=== PATIENT | female | born 1930 | race Caucasian/White ===

== ENCOUNTER → 2017-03-11 | Outpatient (REF) | payer MEDICARE ==
[~2017-03-11] MED LIST: ACET-654 PO; EXCETAB80 PO; FISH100049 PO; LISI10TA2 PO; LISI10TA4 PO; LUTE20CA PO; MELO15TA4 PO; VITA100066 PO
[2017-03-11 11:51] LABS: ALBUMIN 3.3 GM/DL (3.2-5.2); ALBUMIN/GLOBULIN RATIO 0.97 (1.00-1.93); ALKALINE PHOSPHATASE 47 U/L (45-117); ALT/SGPT 18 U/L (12-78); ANION GAP 7 MEQ/L (8-16); AST/SGOT 13 U/L (15-37); BILIRUBIN,TOTAL 0.3 MG/DL (0.2-1.0); BLOOD UREA NITROGEN 17 MG/DL (7-18); CALCIUM LEVEL 9.2 MG/DL (8.8-10.2); CARBON DIOXIDE LEVEL 30 MEQ/L (21-32); CHLORIDE LEVEL 103 MEQ/L (98-107); CREATININE FOR GFR 0.86 MG/DL (0.55-1.02); GLOMERULAR FILTRATION RATE > 60.0 (>32); GLUCOSE, FASTING 86 MG/DL (83-110); MAGNESIUM LEVEL 1.9 MG/DL (1.8-2.4); POTASSIUM SERUM 4.2 MEQ/L (3.5-5.1); SODIUM LEVEL 140 MEQ/L (136-145); TOTAL PROTEIN 6.7 GM/DL (6.4-8.2)
== END ==
LOC: M SFHCPLAZ 09:20
PROVIDERS: ATTEND Internal Medicine
DX: I10 Essential (primary) hypertension (principal)

== ENCOUNTER → 2017-09-04 | Outpatient (REF) | payer MEDICARE ==
[~2017-09-04] MED LIST changes: -ACET-654 PO; +ACET1TAB17 PO
[2017-09-04 12:11] LABS: MEAN CORPUSCULAR HEMOGLOBIN 31.8 pg (27.0-33.0); MEAN CORPUSCULAR HGB CONC 31.5 g/dl (32.0-36.5); MEAN CORPUSCULAR VOLUME 100.9 fl (80.0-96.0); PLATELET COUNT, AUTOMATED 256 10^3/uL (150-450); RED CELL DISTRIBUTION WIDTH 12.5 % (11.5-14.5); WHITE BLOOD COUNT 7.1 10^3/uL (4.0-10.0)
[2017-09-04 12:29] LABS: ALBUMIN 3.5 GM/DL (3.2-5.2); ALBUMIN/GLOBULIN RATIO 1.03 (1.00-1.93); ALKALINE PHOSPHATASE 45 U/L (45-117); ALT/SGPT 17 U/L (12-78); ANION GAP 6 MEQ/L (8-16); AST/SGOT 13 U/L (7-37); BILIRUBIN,TOTAL 0.4 MG/DL (0.2-1.0); BLOOD UREA NITROGEN 24 MG/DL (7-18); CALCIUM LEVEL 9.9 MG/DL (8.8-10.2); CARBON DIOXIDE LEVEL 31 MEQ/L (21-32); CHLORIDE LEVEL 104 MEQ/L (98-107); CHOLESTEROL LEVEL 194 MG/DL (<200); GLOMERULAR FILTRATION RATE > 60.0 (>32); GLUCOSE, FASTING 87 MG/DL (83-110); POTASSIUM SERUM 4.4 MEQ/L (3.5-5.1); SODIUM LEVEL 141 MEQ/L (136-145); TOTAL PROTEIN 6.9 GM/DL (6.4-8.2); TRIGLYCERIDES LEVEL 136 MG/DL (<150)
== END ==
LOC: M SFHCPLAZ 08:41
PROVIDERS: ATTEND Internal Medicine
DX: K58.0 Irritable bowel syndrome with diarrhea (principal); I10 Essential (primary) hypertension

== ENCOUNTER → 2018-01-12 | Outpatient (CLI) | payer MEDICARE | LOC: M WHC 12:48 | DX: Z12.31 Encounter for screening mammogram for malignant neoplasm of breast (principal) | CPT/HCPCS: 77067 ==

== ENCOUNTER → 2018-03-19 | Outpatient (REF) | payer MEDICARE ==
[2018-03-19 13:00] LABS: ALBUMIN 3.5 GM/DL (3.2-5.2); ALBUMIN/GLOBULIN RATIO 0.97 (1.00-1.93); ALKALINE PHOSPHATASE 51 U/L (45-117); ALT/SGPT 24 U/L (12-78); ANION GAP 7 MEQ/L (8-16); AST/SGOT 18 U/L (7-37); BILIRUBIN,TOTAL 0.5 MG/DL (0.2-1.0); BLOOD UREA NITROGEN 22 MG/DL (7-18); CALCIUM LEVEL 9.6 MG/DL (8.8-10.2); CARBON DIOXIDE LEVEL 29 MEQ/L (21-32); CHLORIDE LEVEL 103 MEQ/L (98-107); CREATININE FOR GFR 1.15 MG/DL (0.55-1.30); GLOMERULAR FILTRATION RATE 47.7 (>32); GLUCOSE, FASTING 84 MG/DL (70-100); POTASSIUM SERUM 4.1 MEQ/L (3.5-5.1); SODIUM LEVEL 139 MEQ/L (136-145); TOTAL PROTEIN 7.1 GM/DL (6.4-8.2)
== END ==
LOC: M SFHCPLAZ 09:26
DX: I10 Essential (primary) hypertension (principal)
CPT/HCPCS: 83735

== ENCOUNTER → 2018-09-18 | Outpatient (REF) | payer MEDICARE ==
[2018-09-18 10:44] LABS: HEMATOCRIT 33.6 % (36.0-47.0); HEMOGLOBIN 10.7 g/dl (12.0-15.5); MEAN CORPUSCULAR HEMOGLOBIN 31.9 pg (27.0-33.0); MEAN CORPUSCULAR HGB CONC 31.8 g/dl (32.0-36.5); MEAN CORPUSCULAR VOLUME 100.3 fl (80.0-96.0); PLATELET COUNT, AUTOMATED 293 10^3/uL (150-450); RED BLOOD COUNT 3.35 10^6/uL (4.00-5.40); WHITE BLOOD COUNT 6.6 10^3/uL (4.0-10.0)
[2018-09-18 10:49] LABS: ALBUMIN 3.6 GM/DL (3.2-5.2); ALKALINE PHOSPHATASE 50 U/L (45-117); ALT/SGPT 16 U/L (12-78); ANION GAP 6 MEQ/L (8-16); AST/SGOT 15 U/L (7-37); BILIRUBIN,TOTAL 0.6 MG/DL (0.2-1.0); BLOOD UREA NITROGEN 22 MG/DL (7-18); CALCIUM LEVEL 9.5 MG/DL (8.8-10.2); CARBON DIOXIDE LEVEL 31 MEQ/L (21-32); CHLORIDE LEVEL 104 MEQ/L (98-107); CHOLESTEROL LEVEL 175 MG/DL (<200); CHOLESTEROL RISK RATIO 2.333 (<5); GLUCOSE, FASTING 92 MG/DL (70-100); HDL CHOLESTEROL 75 MG/DL (>40); LDL CHOLESTEROL 72 MG/DL (<100); MAGNESIUM LEVEL 1.8 MG/DL (1.8-2.4); NON-HDL-C 100 MG/DL; SODIUM LEVEL 141 MEQ/L (136-145); TOTAL PROTEIN 7.2 GM/DL (6.4-8.2); TRIGLYCERIDES LEVEL 138 MG/DL (<150)
== END ==
LOC: M SFHCPLAZ 08:45
DX: Z86.010 Personal history of colon polyps (principal); I10 Essential (primary) hypertension; M81.0 Age-related osteoporosis without current pathological fracture
CPT/HCPCS: 83735

== ENCOUNTER 2019-02-08 09:49 | Day surgery (SDC) | payer MEDICARE ==
[~2019-02-08] VITALS: Ht 167.6 cm; Wt 54.0 kg
[~2019-02-08 09:49] MED LIST changes: -ACET1TAB17 PO; +ACET1TAB55 PO; +BENE1POW5 PO; +BIMA01SOL OD; +BRIM1OPD OU; +EXCETAB33 PO; +LIDOCAINE 2% INJ 100 MG/5 ML SDV (FOR ANES.) As Ordered ONE; +LISI20TA PO; +LOPE2TAB11 PO; +LUTE20CA7 PO; +MELA3TAB12 PO; +MELO15TA28 PO; -MELO15TA4 PO; +NS 1,000 ML IV ONE; +OMEP20CA3 PO; +PROPOFOL 200 MG/20 ML VIAL As Ordered ONE; +VITAD1000T PO
[2019-02-08] MEDS ORDERED: TUMERIC PO (10:39)
--- NOTE | 2019-02-08 11:06 | ROOR ---
Patient Name: Sarah Diaz Procedure Date: 02/08/2019 10:46 AM Date of : 1930 Age: 88 Room: [facility], [facility]IN [facility] Gender: Female Note Status: Finalized Procedure: Upper GI endoscopy Balloon Dilatation Indications: Dysphagia Providers: Chad Samuel MD Referring MD: Ten Dean MD Requesting Provider: Medicines: Monitored Anesthesia Care Complications: No immediate complications. Procedure: Pre-Anesthesia Assessment: - The heart rate, respiratory rate, oxygen saturations, blood pressure, adequacy of pulmonary ventilation, and response to care were monitored throughout the procedure. The Endoscope was introduced through the mouth, and advanced to the second part of duodenum. The upper GI endoscopy was accomplished without difficulty. The patient tolerated the procedure well. Findings: The Z-line was regular and was found 38 cm from the incisors. One benign-appearing, intrinsic severe stenosis was found 20 cm from the incisors. The stenosis was traversed after dilation. A TTS dilator was passed through the scope. Dilation with an 8-9-10 mm balloon and a 10-11-12 mm balloon dilator was performed. The dilation site was examined and showed moderate mucosal disruption. No other significant abnormalities were identified in a careful examination of the stomach. The exam of the duodenum was otherwise normal. Impression: - Z-line regular, 38 cm from the incisors. - Benign-appearing esophageal stenosis. Dilated. - No specimens collected. - The examination was otherwise normal. Recommendation: - Patient has a contact number available for emergencies. The signs and symptoms of potential delayed complications were discussed with the patient. Return to normal activities tomorrow. Written discharge instructions were provided to the patient. - Soft diet. - Discharge patient to home. - Continue present medications. - Follow an antireflux regimen. - Return to GI clinic in 6 weeks. - Return to referring physician. - The findings and recommendations were discussed with the patient's family. Chad Samuel MD Chad Samuel MD 02/08/2019 11:06:24 AM Electronically signed by Chad Samuel MD Number of Addenda: 0 Note Initiated On: 02/08/2019 10:46 AM Estimated Blood Loss: Estimated blood loss: none.
[2019-02-08 11:30] VITALS: BP 103/58
== END 2019-02-08 11:39 | disposition home or self-care (01) ==
LOC: M OPP 09:49
PROVIDERS: ATTEND Internal Medicine Gastroenterology
DX: R13.10 Dysphagia, unspecified (principal); K22.2 Esophageal obstruction; Z79.899 Other long term (current) drug therapy; Z88.0 Allergy status to penicillin; Z88.8 Allergy status to other drugs, medicaments and biological substances

== ENCOUNTER → 2019-03-30 | Outpatient (REF) | payer MEDICARE ==
[~2019-03-30] MED LIST changes: -LIDOCAINE 2% INJ 100 MG/5 ML SDV (FOR ANES.) As Ordered ONE; -NS 1,000 ML IV ONE; -PROPOFOL 200 MG/20 ML VIAL As Ordered ONE; +TUMERIC PO
[2019-03-30 12:09] LABS: BASO % 0.4 % (0.0-1.0); EOS # 0.2 10^3/uL (0.0-0.50); EOS % 2.5 % (0.0-3.0); HEMATOCRIT 33.2 % (36.0-47.0); HEMOGLOBIN 10.5 g/dl (12.0-15.5); LYMPH # 1.5 10^3/uL (1.5-4.5); LYMPH % 21.9 % (24.0-44.0); MEAN CORPUSCULAR HEMOGLOBIN 31.4 pg (27.0-33.0); MEAN CORPUSCULAR HGB CONC 31.6 g/dl (32.0-36.5); MEAN CORPUSCULAR VOLUME 99.4 fl (80.0-96.0); MONO # 0.5 10^3/uL (0.0-0.8); MONO % 6.9 % (0.0-5.0); NEUTROPHILS # 4.5 10^3/uL (1.8-7.7); NEUTROPHILS % 67.9 % (36.0-66.0); PLATELET COUNT, AUTOMATED 268 10^3/uL (150-450); RED BLOOD COUNT 3.34 10^6/uL (4.00-5.40); WHITE BLOOD COUNT 6.7 10^3/uL (4.0-10.0)
[2019-03-30 13:40] LABS: ALBUMIN 3.4 GM/DL (3.2-5.2); BILIRUBIN,TOTAL 0.5 MG/DL (0.2-1.0); CALCIUM LEVEL 9.6 MG/DL (8.8-10.2); CREATININE FOR GFR 1.02 MG/DL (0.55-1.30); FOLATE 10.3 NG/ML; GLOMERULAR FILTRATION RATE 54.7 (>32); MAGNESIUM LEVEL 1.9 MG/DL (1.8-2.4); PERCENT SATURATION 32.4 % (13.2-45.0); POTASSIUM SERUM 4.1 MEQ/L (3.5-5.1); THYROID STIMULATING HORMONE 2.21 uIU/ML (0.358-3.740); TOTAL PROTEIN 7.1 GM/DL (6.4-8.2)
== END ==
LOC: M SFHCPLAZ 10:51
PROVIDERS: ATTEND Internal Medicine
DX: D64.9 Anemia, unspecified (principal); I10 Essential (primary) hypertension; R63.4 Abnormal weight loss

== ENCOUNTER → 2019-07-20 | Outpatient (CLI) | payer MEDICARE ==
[~2019-07-20] MED LIST changes: +CHOL100029 PO; +LISI10TA15 PO; -LISI10TA2 PO; -LISI20TA PO; +LISI20TA19 PO; -LOPE2TAB11 PO; +LOPE2TAB12 PO; -OMEP20CA3 PO; +OMEP20CA4 PO; -VITAD1000T PO
--- NOTE | 2019-07-20 09:31 | REP ---
ULTRASOUND ABDOMEN: Real-time sonographic evaluation of the abdomen performed. Gallstones are seen in the gallbladder. There is no gallbladder wall thickening. No free fluid is seen. There is no intrahepatic or extrahepatic biliary dilatation, common bile duct measuring 5 mm. The liver demonstrates no gross mass. The pancreas is not well seen due to bowel gas and body habitus. No gross abnormality is seen in the region of the pancreas. Spleen is normal in size with a length of 9.5 cm, and no intrinsic abnormality. Kidneys are mildly atrophic, right kidney measuring 8.5 x 3.8 x 3.3 cm and left kidney 9.3 x 2.8 x 3.2 cm. There is no hydronephrosis bilaterally. No renal mass is seen. Abdominal aorta is normal in caliber with no aneurysm, proximally measuring 2.5 cm and distally 1.9 cm in AP dimension. IMPRESSION: Gallstones in the gallbladder without gallbladder wall thickening, free fluid or biliary dilatation. Somewhat atrophic kidneys with no hydronephrosis. No other definite abnormalities although this study is limited due to patient body habitus and bowel gas. Electronically Signed by Zion Hayden MD 07/21/2019 04:04 P
== END ==
LOC: M RAD 06:45
PROVIDERS: ATTEND Internal Medicine
DX: R63.4 Abnormal weight loss (principal); K80.20 Calculus of gallbladder without cholecystitis without obstruction; N26.1 Atrophy of kidney (terminal)

== ENCOUNTER → 2019-09-14 | Outpatient (REF) | payer MEDICARE ==
[2019-09-14 14:59] LABS: ALBUMIN 3.3 GM/DL (3.2-5.2); BILIRUBIN,TOTAL 0.4 MG/DL (0.2-1.0); CALCIUM LEVEL 9.4 MG/DL (8.8-10.2); CREATININE FOR GFR 0.95 MG/DL (0.55-1.30); GLOMERULAR FILTRATION RATE 59.2 (>32); MAGNESIUM LEVEL 1.8 MG/DL (1.8-2.4); POTASSIUM SERUM 3.9 MEQ/L (3.5-5.1); TOTAL PROTEIN 7.2 GM/DL (6.4-8.2)
[2019-09-14 15:03] LABS: BASO % 0.5 % (0.0-1.0); EOS # 0.1 10^3/uL (0.0-0.5); EOS % 0.6 % (0.0-3.0); HEMATOCRIT 33.1 % (36.0-47.0); HEMOGLOBIN 10.1 g/dl (12.0-15.5); LYMPH # 1.4 10^3/uL (1.5-5.0); LYMPH % 16.2 % (24.0-44.0); MEAN CORPUSCULAR HEMOGLOBIN 31.6 pg (27.0-33.0); MEAN CORPUSCULAR HGB CONC 30.5 g/dl (32.0-36.5); MEAN CORPUSCULAR VOLUME 103.4 fl (80.0-96.0); MONO # 0.7 10^3/uL (0.0-0.8); NEUTROPHILS # 6.6 10^3/uL (1.5-8.5); NEUTROPHILS % 74.5 % (36.0-66.0); PLATELET COUNT, AUTOMATED 330 10^3/uL (150-450); WHITE BLOOD COUNT 8.9 10^3/uL (4.0-10.0)
== END ==
LOC: M SFHCPLAZ 10:48
PROVIDERS: ATTEND Internal Medicine
DX: D64.9 Anemia, unspecified (principal); I10 Essential (primary) hypertension

== ENCOUNTER → 2019-12-21 | Outpatient (REF) | payer MEDICARE ==
[~2019-12-21] MED LIST changes: +OMEP1CAP73 PO; -OMEP20CA4 PO
[2019-12-21 14:03] LABS: BASO # 0.1 10^3/uL (0.0-0.2); BASO % 0.7 % (0.0-1.0); EOS % 0.1 % (0.0-3.0); HEMATOCRIT 33.4 % (36.0-47.0); HEMOGLOBIN 10.6 g/dl (12.0-15.5); LYMPH # 1.7 10^3/uL (1.5-5.0); LYMPH % 22.9 % (24.0-44.0); MEAN CORPUSCULAR HEMOGLOBIN 31.7 pg (27.0-33.0); MEAN CORPUSCULAR HGB CONC 31.7 g/dl (32.0-36.5); MONO # 0.6 10^3/uL (0.0-0.8); MONO % 8.5 % (0.0-5.0); NEUTROPHILS # 5.1 10^3/uL (1.5-8.5); NEUTROPHILS % 67.5 % (36.0-66.0); PLATELET COUNT, AUTOMATED 307 10^3/uL (150-450); RED BLOOD COUNT 3.34 10^6/uL (4.00-5.40); WHITE BLOOD COUNT 7.5 10^3/uL (4.0-10.0)
[2019-12-21 15:17] LABS: ALBUMIN 3.6 GM/DL (3.2-5.2); ALT/SGPT 18 U/L (12-78); BILIRUBIN,TOTAL 0.5 MG/DL (0.2-1.0); BLOOD UREA NITROGEN 32 MG/DL (7-18); CALCIUM LEVEL 9.9 MG/DL (8.8-10.2); CARBON DIOXIDE LEVEL 31 MEQ/L (21-32); CHLORIDE LEVEL 105 MEQ/L (98-107); CREATININE FOR GFR 0.88 MG/DL (0.55-1.30); GLOMERULAR FILTRATION RATE > 60.0 (>32); GLUCOSE, FASTING 102 MG/DL (70-100); MAGNESIUM LEVEL 1.9 MG/DL (1.8-2.4); POTASSIUM SERUM 4.5 MEQ/L (3.5-5.1); SODIUM LEVEL 139 MEQ/L (136-145); TOTAL PROTEIN 7.4 GM/DL (6.4-8.2); VITAMIN B12 LEVEL 1254 PG/ML
== END ==
LOC: M SFHCPLAZ 10:33
PROVIDERS: ATTEND Internal Medicine
DX: D64.9 Anemia, unspecified (principal); I10 Essential (primary) hypertension

== ENCOUNTER → 2020-06-30 | Outpatient (CLI) | payer MEDICARE ==
[~2020-06-30] MED LIST changes: -LISI20TA19 PO; +LISI20TA35 PO
[2020-06-30 13:03] LABS: BASO # 0.1 10^3/uL (0.0-0.2); BASO % 0.7 % (0.0-1.0); EOS # 0.1 10^3/uL (0.0-0.5); EOS % 0.7 % (0.0-3.0); HEMATOCRIT 34.3 % (36.0-47.0); HEMOGLOBIN 10.8 g/dl (12.0-15.5); LYMPH # 1.6 10^3/uL (1.5-5.0); LYMPH % 22.9 % (24.0-44.0); MEAN CORPUSCULAR HEMOGLOBIN 32.1 pg (27.0-33.0); MEAN CORPUSCULAR HGB CONC 31.5 g/dl (32.0-36.5); MEAN CORPUSCULAR VOLUME 102.1 fl (80.0-96.0); MONO # 0.5 10^3/uL (0.0-0.8); MONO % 7.4 % (0.0-5.0); NEUTROPHILS # 4.8 10^3/uL (1.5-8.5); NEUTROPHILS % 68.2 % (36.0-66.0); PLATELET COUNT, AUTOMATED 275 10^3/uL (150-450); RED BLOOD COUNT 3.36 10^6/uL (4.00-5.40)
[2020-06-30 13:09] LABS: ALBUMIN 3.5 GM/DL (3.2-5.2); BILIRUBIN,TOTAL 0.6 MG/DL (0.2-1.0); CREATININE FOR GFR 1.11 MG/DL (0.55-1.30); GLOMERULAR FILTRATION RATE 49.5 (>32); POTASSIUM SERUM 4.3 MEQ/L (3.5-5.1); TOTAL PROTEIN 7.4 GM/DL (6.4-8.2)
== END ==
LOC: M PLALAB 09:15
PROVIDERS: ATTEND Internal Medicine
DX: Z00.00 Encounter for general adult medical examination without abnormal findings (principal); D64.9 Anemia, unspecified; I10 Essential (primary) hypertension

== ENCOUNTER → 2021-01-01 | Outpatient (REF) | payer MEDICARE ==
[~2021-01-01] MED LIST changes: +LISI10TA22 PO; -LISI10TA4 PO
[2021-01-01 13:07] LABS: BASO # 0.1 10^3/uL (0.0-0.2); BASO % 0.9 % (0.0-1.0); EOS # 0.3 10^3/uL (0.0-0.5); EOS % 3.6 % (0.0-3.0); HEMATOCRIT 33.7 % (36.0-47.0); HEMOGLOBIN 10.5 g/dl (12.0-15.5); LYMPH # 1.9 10^3/uL (1.5-5.0); LYMPH % 25.1 % (24.0-44.0); MEAN CORPUSCULAR HEMOGLOBIN 32.3 pg (27.0-33.0); MEAN CORPUSCULAR HGB CONC 31.2 g/dl (32.0-36.5); MEAN CORPUSCULAR VOLUME 103.7 fl (80.0-96.0); MONO # 0.8 10^3/uL (0.0-0.8); MONO % 10.1 % (2.0-8.0); NEUTROPHILS # 4.6 10^3/uL (1.5-8.5); NEUTROPHILS % 60.2 % (36.0-66.0); PLATELET COUNT, AUTOMATED 292 10^3/uL (150-450); RED BLOOD COUNT 3.25 10^6/uL (4.00-5.40); WHITE BLOOD COUNT 7.6 10^3/uL (4.0-10.0)
[2021-01-01 13:45] LABS: ALBUMIN 3.6 GM/DL (3.2-5.2); ALT/SGPT 18 U/L (12-78); BILIRUBIN,TOTAL 0.4 MG/DL (0.2-1.0); BLOOD UREA NITROGEN 24 MG/DL (7-18); CALCIUM LEVEL 10.2 MG/DL (8.8-10.2); CARBON DIOXIDE LEVEL 33 MEQ/L (21-32); CHLORIDE LEVEL 105 MEQ/L (98-107); CHOLESTEROL LEVEL 174 MG/DL (<200); CHOLESTEROL RISK RATIO 2.121 (<5); CREATININE FOR GFR 0.98 MG/DL (0.55-1.30); GLUCOSE, FASTING 87 MG/DL (70-100); HDL CHOLESTEROL 82 MG/DL (>40); LDL CHOLESTEROL 56 MG/DL (<100); MAGNESIUM LEVEL 1.8 MG/DL (1.8-2.4); NON-HDL-C 92 MG/DL; POTASSIUM SERUM 4.8 MEQ/L (3.5-5.1); SODIUM LEVEL 139 MEQ/L (136-145); TRIGLYCERIDES LEVEL 181 MG/DL (<150)
== END ==
LOC: M PLALAB 09:12
PROVIDERS: ATTEND Internal Medicine
DX: D64.9 Anemia, unspecified (principal); I10 Essential (primary) hypertension; Z11.59 Encounter for screening for other viral diseases
CPT/HCPCS: 36415; 80053; 80061; 83735; 85025; G0472

== ENCOUNTER → 2021-07-10 | Outpatient (CLI) | payer MEDICARE ==
[2021-07-10 10:30] LABS: BASO # 0.1 10^3/uL (0.0-0.2); EOS # 0.3 10^3/uL (0.0-0.5); EOS % 4.8 % (0.0-3.0); HEMATOCRIT 33.4 % (36.0-47.0); HEMOGLOBIN 10.8 g/dl (12.0-15.5); LYMPH # 1.9 10^3/uL (1.5-5.0); LYMPH % 25.9 % (24.0-44.0); MEAN CORPUSCULAR HEMOGLOBIN 32.2 pg (27.0-33.0); MEAN CORPUSCULAR HGB CONC 32.3 g/dl (32.0-36.5); MEAN CORPUSCULAR VOLUME 99.7 fl (80.0-96.0); MONO # 0.7 10^3/uL (0.0-0.8); MONO % 9.1 % (2.0-8.0); NEUTROPHILS # 4.2 10^3/uL (1.5-8.5); NEUTROPHILS % 58.6 % (36.0-66.0); PLATELET COUNT, AUTOMATED 283 10^3/uL (150-450); RED BLOOD COUNT 3.35 10^6/uL (4.00-5.40); WHITE BLOOD COUNT 7.1 10^3/uL (4.0-10.0)
[2021-07-10 10:36] LABS: ALBUMIN 3.4 GM/DL (3.2-5.2); BILIRUBIN,TOTAL 0.5 MG/DL (0.2-1.0); CALCIUM LEVEL 9.7 MG/DL (8.8-10.2); CREATININE FOR GFR 1.14 MG/DL (0.55-1.30); GLOMERULAR FILTRATION RATE 47.9 (>32); POTASSIUM SERUM 3.9 MEQ/L (3.5-5.1)
== END ==
LOC: M PLALAB 08:28
PROVIDERS: ATTEND Internal Medicine
DX: I10 Essential (primary) hypertension (principal); D64.9 Anemia, unspecified

== ENCOUNTER → 2022-02-04 | Outpatient (CLI) | payer MEDICARE ==
[~2022-02-04] MED LIST changes: -LISI10TA15 PO; +LISI10TA24 PO
[2022-02-04 10:38] LABS: BASO % 0.7 % (0.0-1.0); EOS # 0.2 10^3/uL (0.0-0.5); EOS % 3.6 % (0.0-3.0); HEMATOCRIT 33.6 % (36.0-47.0); HEMOGLOBIN 10.7 g/dl (12.0-15.5); LYMPH # 1.5 10^3/uL (1.5-5.0); LYMPH % 23.6 % (24.0-44.0); MEAN CORPUSCULAR HEMOGLOBIN 32.5 pg (27.0-33.0); MEAN CORPUSCULAR HGB CONC 31.8 g/dl (32.0-36.5); MEAN CORPUSCULAR VOLUME 102.1 fl (80.0-96.0); MONO # 0.6 10^3/uL (0.0-0.8); MONO % 9.9 % (2.0-8.0); NEUTROPHILS # 3.8 10^3/uL (1.5-8.5); NEUTROPHILS % 61.9 % (36.0-66.0); PLATELET COUNT, AUTOMATED 268 10^3/uL (150-450); RED BLOOD COUNT 3.29 10^6/uL (4.00-5.40); WHITE BLOOD COUNT 6.2 10^3/uL (4.0-10.0)
[2022-02-04 11:31] LABS: ALBUMIN 3.4 GM/DL (3.2-5.2); BILIRUBIN,TOTAL 0.5 MG/DL (0.2-1.0); CALCIUM LEVEL 9.5 MG/DL (8.8-10.2); CHOLESTEROL RISK RATIO 2.048 (<5); CREATININE FOR GFR 0.95 MG/DL (0.55-1.30); POTASSIUM SERUM 4.6 MEQ/L (3.5-5.1); THYROID STIMULATING HORMONE 5.13 uIU/ML (0.358-3.740); TOTAL PROTEIN 6.8 GM/DL (6.4-8.2)
== END ==
LOC: M PLALAB 08:39
PROVIDERS: ATTEND Internal Medicine
DX: I10 Essential (primary) hypertension (principal); D64.9 Anemia, unspecified